=== PATIENT | male | born 1975 | race African-American/Black ===

== ENCOUNTER 2024-03-19 12:03 | Emergency (ER) | payer BC, OTHER ==
[~2024-03-19] VITALS: Ht 180.3 cm; Wt 110.9 kg
[2024-03-19 12:45] VITALS: TEMP 98; O2SAT 99
[2024-03-19 13:05] VITALS: BP 118/72; PULSE 66; RESP 18
[2024-03-19] MEDS: methylPREDNISolone SOD SUCC 125 MG/2 ML VL IM ONE (13:05)
[2024-03-19] MEDS: MEPERIDINE HCL (50 MG/ML) 1 ML VIAL IM ONE (13:05)
[2024-03-19] MEDS: ONDANSETRON ODT 4 MG TAB PO ONE (13:05)
[2024-03-19] MEDS ORDERED: PRED20TA2 PO (13:27)
[2024-03-19] MEDS ORDERED: IBUP-1456 PO (13:27)
== END 2024-03-19 13:39 | disposition home or self-care (01) ==
LOC: ER 12:03
DX: G89.29 Other chronic pain (principal); M54.50 Low back pain, unspecified; M54.16 Radiculopathy, lumbar region; Z79.1 Long term (current) use of non-steroidal anti-inflammatories (NSAID); Z79.899 Other long term (current) drug therapy
CPT/HCPCS: 96372; 99284; J2175; J2919; Q0162